=== PATIENT | male | born 1995 | race Caucasian/White ===

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

== ENCOUNTER 2017-04-08 16:35 | Emergency (ER) | payer BC, OTHER ==
--- NOTE | 2017-04-08 18:00 | EDM.PDOC ---
ED HPI GENERAL MEDICAL PROBLEM - General Chief Complaint: General Stated Complaint: Cough Time Seen by Provider: 04/08/17 16:50 Source of Information: Reports: Patient - History of Present Illness INITIAL COMMENTS - FREE TEXT/NARRATIVE: Patient is a 89-year-old who was seen with chief complaint of coughing chest discomfort and sore throat he states that this started about 2 days ago and today is worse he recently had a pneumonia within the last year and was concerned at this time he was evaluated Onset Date: 04/05/17 Duration: Day(s): (3 days ago) Location: Reports: Chest (discomfort and cough ) Quality: Reports: Ache Associated Symptoms: Reports: Cough. Denies: cough w sputum - Related Data Allergies Allergy/AdvReac Type Severity Reaction Status Date / Time No Known Allergies Allergy Verified 04/08/17 16:36 Home Meds: Home Meds Acetaminophen [Tylenol] 650 mg PO Q4H PRN #100 tablet 07/18/16 [Rx] Ibuprofen 400 mg PO Q6HR PRN 04/08/17 [History] Past Medical History Other HEENT History: Tonsillectomy. [place] teeth surgery Other Gastrointestinal History: surgery on stomach for GERD at age 35 years old Social & Family History - Family History Other GI Family History: crohn's in father - Tobacco Use Smoking Status *Q: Never Smoker - Caffeine Use Caffeine Use: Reports: Soda - Living Situation & Occupation Living situation: Reports: with Significant Other Occupation: Employed ED ROS GENERAL - Review of Systems Review Of Systems: See Below Constitutional: Reports: Weakness HEENT: Reports: Throat Pain. Denies: Dental Pain, Ear Pain, Eye Discharge, Eye Pain Respiratory: Reports: Shortness of Breath, Cough Cardiovascular: Reports: No Symptoms Endocrine: Reports: No Symptoms GI/Abdominal: Reports: No Symptoms : Reports: No Symptoms Musculoskeletal: Reports: No Symptoms Skin: Reports: No Symptoms Neurological: Reports: No Symptoms Psychiatric: Reports: No Symptoms ED EXAM, GENERAL - Physical Exam Exam: See Below General Appearance: Alert, WD/WN, No Apparent Distress Eye Exam: Bilateral Eye: PERRL Ears: Normal External Exam, Normal Canal, Hearing Grossly Normal, Normal TMs Nose: Normal Inspection, Normal Mucosa, No Blood Throat/Mouth: Normal Inspection, Normal Lips, Normal Teeth, Normal Gums, Normal Oropharynx, Normal Voice, No Airway Compromise Head: Atraumatic, Normocephalic Neck: Normal Inspection, Supple, Non-Tender, Full Range of Motion Respiratory/Chest: No Respiratory Distress, Lungs Clear, Normal Breath Sounds, No Accessory Muscle Use Cardiovascular: Normal Peripheral Pulses, Regular Rate, Rhythm, No Edema, No Gallop, No JVD, No Murmur, No Rub GI/Abdominal: Normal Bowel Sounds, Soft, Non-Tender, No Organomegaly, No Distention, No Abnormal Bruit, No Mass (Male) Exam: Deferred Rectal (Males) Exam: Deferred Back Exam: Normal Inspection, Full Range of Motion, NT Neurological: Alert Psychiatric: Normal Affect, Normal Mood Course - Vital Signs Text/Narrative:: X ray performed no pneumonia no abnormalities - Orders/Labs/Meds Orders: Active Orders 24 hr Category Date Time Status CXR [Chest 2V] [CR] Stat Exams 04/08/17 17:18 Taken Labs: Laboratory Tests 04/08/17 Range/Units 17:23 WBC 14.3 H (4.0-10.2) K/uL RBC 4.88 (4.33-5.41) M/uL Hgb 13.5 (13.1-16.8) g/dL Hct 41.4 (39.0-49.0) % MCV 84.8 (84.0-98.0) fL MCH 27.7 L (28.2-33.3) pg MCHC 32.6 (31.7-36.0) g/dL RDW 14.3 H (11.2-14.1) % Plt Count 310 (150-350) K/uL Neut % (Auto) 63.8 (45.0-80.0) % Lymph % (Auto) 25.1 (10.0-50.0) % [place] % (Auto) 8.5 (2.0-14.0) % Eos % (Auto) 2.3 (0.0-5.0) % Baso % (Auto) 0.3 (0.0-2.0) % Neut # (Auto) 9.11 H (1.40-7.00) K/uL Lymph # (Auto) 3.59 H (0.50-3.50) K/uL [place] # (Auto) 1.21 H (0.00-1.00) K/uL Eos # (Auto) 0.33 (0.00-0.50) K/uL Baso # (Auto) 0.04 (0.00-0.20) K/uL Departure - Departure Time of Disposition: 17:57 Disposition: Home, Self-Care 01 Clinical Impression: Bronchitis - Discharge Information Instructions: Acute Bronchitis, [id number] Referrals: Kailey Sales, [employer]ATOR [Primary Care Provider] - Additional Instructions: Chest x ray revealed no pneumonia. Elevated WBC count. Diagnosis: Bronchitis. Will send patient home on zithromax 500mg 1 tablet x 3 days. - My Orders Last 24 Hours: My Active Orders 04/08/17 17:18 CXR [Chest 2V] [CR] Stat - Assessment/Plan Last 24 Hours: My Active Orders 04/08/17 17:18 CXR [Chest 2V] [CR] Stat
[2017-04-08 19:30] VITALS: BP 142/60
== END 2017-04-08 18:05 | disposition home or self-care (01) ==
LOC: LL.ED 16:35
DX: J40 Bronchitis, not specified as acute or chronic (principal)
CPT/HCPCS: 36415; 71020; 85025; 99283

== ENCOUNTER 2020-07-18 16:41 | Emergency (ER) | payer BC ==
[2020-07-18 16:51] VITALS: BP 148/84; PULSE 101
[2020-07-18 17:25] LABS: CHLORIDE,CL 106 mmol/L (98-107); SODIUM,NA 142 mmol/L (136-145)
--- NOTE | 2020-07-18 17:42 | EDM.PDOC ---
ED HPI GENERAL MEDICAL PROBLEM - General Chief Complaint: General Stated Complaint: CHEST WALL PAIN Time Seen by Provider: 07/18/20 16:53 Source of Information: Reports: Patient History Limitations: Reports: No Limitations - History of Present Illness INITIAL COMMENTS - FREE TEXT/NARRATIVE: Comes to ER from [facility] with complaint of central anterior chest pain that started around 2:30/3pm. No history of similar pain in past. 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 Pain does not radiate. Worse when moving arms/twisting/taking deep breath. No recent illness. No fever/chills/SOB/cough/respiratory changes. Chest Pain Score (Numeric/FACES): 6 - Related Data Allergies Allergy/AdvReac Type Severity Reaction Status Date / Time No Known Allergies Allergy Verified 07/18/20 16:51 Home Meds: Home Meds Acetaminophen [Tylenol] 650 mg PO Q4H PRN #100 tablet 07/18/16 [Rx] Ibuprofen 400 mg PO Q6HR PRN 04/08/17 [History] Past Medical History Other HEENT History: Tonsillectomy. [place] teeth surgery Other Gastrointestinal History: surgery on stomach for GERD at age 35 years old Endocrine/Metabolic History: Reports: Obesity/BMI 30+ (Morbid obesity) Social & Family History - Family History Other GI Family History: crohn's in father - Caffeine Use Caffeine Use: Reports: Soda - Living Situation & Occupation Living situation: Reports: with Significant Other Occupation: Employed ED ROS GENERAL - Review of Systems Review Of Systems: See Below Constitutional: Reports: No Symptoms HEENT: Reports: No Symptoms Respiratory: Reports: No Symptoms Cardiovascular: Reports: Chest Pain. Denies: Blood Pressure Problem, Cl audication, Dyspnea on Exertion, Edema, Lightheadedness, Orthopnea, Palpitations, Syncope GI/Abdominal: Reports: No Symptoms : Reports: No Symptoms Musculoskeletal: Reports: No Symptoms Skin: Reports: No Symptoms Neurological: Reports: No Symptoms Psychiatric: Reports: No Symptoms ED EXAM, GENERAL - Physical Exam Exam: See Below Exam Limited By: No Limitations General Appearance: Alert, No Apparent Distress, Obese Eye Exam: Bilateral Eye: EOMI, PERRL Ears: Hearing Grossly Normal Nose: No: Nasal Deformity, Nasal Swelling, Nasal Drainage Throat/Mouth: Normal Lips, Normal Voice, No Airway Compromise Head: Atraumatic, Normocephalic Neck: Supple Respiratory/Chest: No Respiratory Distress, Lungs Clear, Normal Breath Sounds, No Accessory Muscle Use, Other (Tender with palpation over sternum and adjacent to sternum bilaterally. Reproduces patient's pain complaint. ) Cardiovascular: Regular Rate, Rhythm, No Murmur GI/Abdominal: Normal Bowel Sounds, Soft, Non-Tender, Other (obese) (Male) Exam: Deferred Rectal (Males) Exam: Deferred Back Exam: No: Muscle Spasm Extremities: Normal Range of Motion, Normal Capillary Refill Neurological: Alert, Oriented, Normal Cognition, No Motor/Sensory Deficits Psychiatric: Normal Affect, Normal Mood Skin Exam: Warm, Dry, Intact, Normal Color #1 Interpretation EKG Date: 07/18/20 Time: 17:05 Rhythm: NSR Rate (Beats/Min): 83 [place]: Normal P-Wave: Present QRS: Normal ST-T: Normal QT: Normal Comparison: NA - No Prior EKG Course - Vital Signs Last Recorded V/S: Last Vital Signs Temp 36.5 C 07/18/20 16:43 Pulse 101 H 07/18/20 16:43 Resp 20 07/18/20 16:43 BP 148/84 H 07/18/20 16:43 Pulse Ox 99 07/18/20 16:43 - Orders/Labs/Meds Orders: Active Orders 24 hr Category Date Time Status EKG Documentation Completion [RC] ASDIRECTED Care 07/18/20 17:00 Ordered Chest 2V [CR] Stat Exams 07/18/20 17:00 Ordered EKG 12 Lead [EK] Stat Ther 07/18/20 17:00 Ordered Labs: Laboratory Tests 07/18/20 07/18/20 Range/Units 17:06 17:06 WBC 13.5 H (4.0-10.2) K/uL RBC 5.08 (4.33-5.41) M/uL Hgb 13.7 (13.1-16.8) g/dL Hct 43.1 (39.0-49.0) % MCV 84.8 (84.0-98.0) fL MCH 27.0 L (28.2-33.3) pg MCHC 31.8 (31.7-36.0) g/dL RDW 14.7 H (11.2-14.1) % Plt Count 319 (150-350) K/uL Neut % (Auto) 67.6 (45.0-80.0) % Lymph % (Auto) 21.2 (10.0-50.0) % [place] % (Auto) 8.5 (2.0-14.0) % Eos % (Auto) 2.4 (0.0-5.0) % Baso % (Auto) 0.3 (0.0-2.0) % Neut # (Auto) 9.16 H (1.40-7.00) K/uL Lymph # (Auto) 2.87 (0.50-3.50) K/uL [place] # (Auto) 1.15 H (0.00-1.00) K/uL Eos # (Auto) 0.32 (0.00-0.50) K/uL Baso # (Auto) 0.04 (0.00-0.20) K/uL Sodium 142 (136-145) mmol/L Potassium 3.9 (3.5-5.1) mmol/L Chloride 106 (98-107) mmol/L Carbon Dioxide 26.8 (21.0-32.0) mmol/L BUN 15 (7-18) mg/dL Creatinine 0.81 (0.51-1.17) mg/dL Est Cr Clr Drug Dosing 137.22 mL/min Estimated GFR (MDRD) > 60 mL/min Glucose 112 H (70-99) mg/dL Calcium 8.8 (8.5-10.1) mg/dL Magnesium 1.8 (1.8-2.4) mg/dL Total Bilirubin 0.2 (0.2-1.0) mg/dL AST 19 (15-37) U/L ALT 32 (12-78) U/L Alkaline Phosphatase 106 (46-116) IU/L Troponin I 0.000 (0.000-0.056) ng/mL Total Protein 8.0 (6.4-8.2) g/dL Albumin 3.7 (3.4-5.0) g/dL Meds: Medications Discontinued Medications Generic Name Dose Route Start Last Admin Trade Name Freq PRN Reason Stop Dose Admin Ketorolac Tromethamine 10 mg 07/18/20 17:48 Ketorolac 10 Mg Tab PO 07/18/20 17:49 ONETIME ONE - Re-Assessments/Exams Free Text/Narrative Re-Assessment/Exam: 07/18/20 17:45 chest xray/EKG/labs overall unremarkable. Mild increased WBC. May be due to pain response. No suggestion of infectious process noted on history/exam/rest of workup. Pain reproducible with palpation anterior chest. Suspect musculoskeletal etiology at this time. Will given patient work excuse. Conservative management at this time. Observe for changes. OK to take NSAIDs and/or Tylenol. To follow up as needed. Departure - Departure Time of Disposition: 17:47 Disposition: Home, Self-Care 01 Condition: Good Clinical Impression: Chest wall pain - Discharge Information *PRESCRIPTION DRUG MONITORING PROGRAM REVIEWED*: Not Applicable *COPY OF PRESCRIPTION DRUG MONITORING REPORT IN PATIENT LEOPOLDO: Not Applicable Instructions: Chest Wall Pain Referrals: Kailey Sales NP [Primary Care Provider] - Forms: ED Department Discharge Additional Instructions: Rest/avoid lifting. Apply cool packs/ice packs to sore area on chest. Observe for changes. OK to take Ibuprofen or Aleve. Can also take Tylenol to help with the pain. Follow up with your primary care provider Thursday if additional restrictions/evaluation is needed. Sepsis Event Note (ED) - Evaluation Sepsis Screening Result: No Definite Risk - Focused Exam Vital Signs: Vital Signs Temp Pulse Resp BP Pulse Ox 07/18/20 16:43 36.5 C 101 H 20 148/84 H 99 - My Orders Last 24 Hours: My Active Orders 07/18/20 17:00 EKG Documentation Completion [RC] ASDIRECTED Chest 2V [CR] Stat EKG 12 Lead [EK] Stat - Assessment/Plan Last 24 Hours: My Active Orders 07/18/20 17:00 EKG Documentation Completion [RC] ASDIRECTED Chest 2V [CR] Stat EKG 12 Lead [EK] Stat
[2020-07-18] MEDS ORDERED: Ketorolac 10 MG Tab PO ONE (17:48)
== END 2020-07-18 18:05 | disposition home or self-care (01) ==
LOC: LL.ED 16:41
DX: R07.89 Other chest pain (principal); E66.01 Morbid (severe) obesity due to excess calories; Z68.44 Body mass index [BMI] 60.0-69.9, adult
CPT/HCPCS: 36415; 71046; 80053; 83735; 84484; 85025; 93005; 93010; 99283; 99285-25; A9270-GY

== ENCOUNTER 2022-05-24 19:22 | Emergency (ER) | payer BC ==
[2022-05-24 19:34] VITALS: BP 145/79; PULSE 77
[2022-05-24] MEDS ORDERED: Ondansetron 4 MG/2 ML SDV IVPUSH PRN (19:40)
[2022-05-24] MEDS ORDERED: Sodium Chloride 0.9% 1,000 ML IV ONE (19:44)
[2022-05-24] MEDS: Sodium Chloride 0.9% 10 ML Syringe FLUSH PRN ×3 (19:58→22:18)
[2022-05-24] MEDS: HYDROmorphone 0.5 MG/0.5 ML Syringe IVPUSH PRN ×3 (20:00→22:17)
[2022-05-24] MEDS ORDERED: Iopamidol 612 MG/ML 100 ML Bottle ONE (20:08)
[2022-05-24 20:14] LABS: ANION GAP 6.7 meq/L (7-15)
[2022-05-24] MEDS ORDERED: Iopamidol 612 MG/ML 100 ML Bottle IVPUSH ONE (20:32)
[2022-05-24] MEDS ORDERED: Acetaminophen/HYDROcodone 325-5 MG Tab PO PRN ×2 (22:28→22:46)
== END 2022-05-24 23:03 | disposition home or self-care (01) ==
LOC: LL.ED 19:22 → SUPCPDRO 19:22 → LL.ED 23:03
DX: R10.13 Epigastric pain (principal); E66.9 Obesity, unspecified; Z68.30 Body mass index [BMI] 30.0-30.9, adult; Z79.899 Other long term (current) drug therapy
CPT/HCPCS: 36415; 74177; 80053; 81001; 83605; 85025; 96361; 96374; 96375; 96376; 99284; 99284-25; A9270-GY; J1170; J2405; J3490; J7030; Q9967